=== PATIENT | female | born 1950 | race Caucasian/White ===

== ENCOUNTER → 2016-12-23 | Outpatient (CLI) | payer OTHER ==
--- NOTE | ~2016-12-23 | MY11 ---
[facility] A Service of [facility] RADIOLOGY TEXT RESULTS PATIENT: SANDRA CUENCA LOCATION: [facility] : 52 UNIT #: [id number] AGE: [address]: Saray Billings SEX: F ORDER DR: [id number] [facility]. [place], [place] [address] [id number] MR#: [id number] Acc #: [id number] NAME: SANDRA CUENCA : 1950 SEX: F STUDY DATE/TIME: 12/23/2016 8:31 UNIT: [facility] ROOM: STUDY DESCRIPTION: MY Mammogram Screening Dig Michael Attending Physician: Myra Steve Referring Physician: Myra Steve Ordering Physician: Myra Steve Primary Care Physician: Myra Steve MEDICAL IMAGING REPORT This report is preliminary unless electronic signature is present EXAM Bilateral Digital Screening Mammogram with CAD INDICATION Breast cancer screening. 66-year-old asymptomatic female who reports a paternal aunt with postmenopausal breast cancer. COMPARISON March 30, 2012 and February 25, 2011 FINDINGS The breasts are almost entirely fatty. No suspicious findings are present. IMPRESSION No mammographic evidence of malignancy. Annual screening mammography and clinical breast exam are recommended. A result letter will be sent to the patient. Patients over the age of 40 are entered into a reminder system with target due date for the next mammogram. BIRADS: 1 Negative Dictated by... Chiki Liao M.D. THIS IS AN ELECTRONICALLY VERIFIED REPORT Chiki Liao M.D. at 12/25/2016 11:07 AM [facility] A Service [facility] RADIOLOGY TEXT RESULTS PATIENT: SANDRA CUENCA LOCATION: [facility] : 52 UNIT #: [id number] AGE: [address]: Saray Billings SEX: F ORDER DR: TD: 12/23/2016 11:22 JOB #: [id number] MEDICAL IMAGING REPORT Page 1 of 1 COPY
== END | disposition home or self-care (01) ==
LOC: CWCC 08:08
DX: Z12.31 Encounter for screening mammogram for malignant neoplasm of breast (principal); Z80.3 Family history of malignant neoplasm of breast
CPT/HCPCS: G0202